=== PATIENT | female | born 2000 | race Caucasian/White ===

== ENCOUNTER 2024-12-21 17:12 | Emergency (ER) | payer BC, OTHER ==
[~2024-12-21] VITALS: Ht 162.6 cm; Wt 124.0 kg
[~2024-12-21 17:12] MED LIST: CYCLOBENZAPRINE5 MG PO; IBUPROFEN800 MG PO; MIDOL COMPLETE1 EACH PO; ORTHO TRI-CYCL1 EACH PO
--- OUTSIDE RECORDS SUMMARY | 2024-12-21 17:20 | XMS ---
PreManage Notification: EFREN KILGORE Security Hims Coder Events No recent Security Events currently on file CRITERIA MET - Group Notification CARE PROVIDERS -, Alexis- Dentist: Rehabilitation Program Coordinator [facility] PHONE: [phone] Claudia has no Care Guidelines for this patient. [place] VISIT COUNT (12 MO.) 1 FAVIO Rodrigues TOTAL 1 NOTE: Visits indicate total known visits. ED/UCC VISIT TRACKING (12 MO.) 12/21/2024 17:14 FAVIO Ruiz OR TYPE: Emergency COMPLAINT: - VAGINAL BLEEDING INPATIENT VISIT TRACKING (12 MO.) No inpatient visits to display in this time frame [email or web address]
[2024-12-21 18:29] LABS: BASOPHILS 0.4 % (0.1-1.2); EOSINOPHILS 1.9 % (0.7-5.8); HEMATOCRIT 39.2 % (34.1-44.9); HEMOGLOBIN 12.6 g/dL (11.2-15.7); LYMPHOCYTES 26.8 % (19.3-51.7); MCH 27.3 PG (25.6-32.2); MCHC 32.1 g/dL (32.2-35.5); MCV 84.8 fL (79.4-94.8); MONOCYTES 6.9 % (4.7-12.5); NEUTROPHILS 63.8 % (34.0-71.1); PLATELET COUNT 209 K/uL (182-369); RBC 4.62 M/uL (3.93-5.22)
[2024-12-21 18:47] LABS: ABO O; RH POSITIVE
[2024-12-21 18:49] LABS: ANION GAP 14.6 (7-21); BUN/CREATININE RATIO 10.66 (6.0-28.6); CALCIUM 9.7 mg/dL (8.5-10.1); CREATININE, SERUM 0.75 mg/dL (0.55-1.02); POTASSIUM 3.6 mmol/L (3.5-5.1)
[2024-12-21 19:56] LABS: ALBUMIN 3.9 g/dL (3.4-5.0); ALBUMIN/GLOBULIN RATIO 1.03 (1.1-2.4); BILIRUBIN, DIRECT 0.1 mg/dL (0.0-0.2); BILIRUBIN, INDIRECT 0.6 (0.1-0.7); BILIRUBIN, TOTAL 0.7 mg/dL (0.2-1.0); PROTEIN, TOTAL 7.7 g/dL (6.4-8.2)
[2024-12-21 20:39] LABS: BILIRUBIN, URINE NEGATIVE (negative); BLOOD/HGB, URINE LARGE (Negative); KETONE, URINE NEGATIVE (Negative); LEUK ESTERASE, URINE NEGATIVE (negative); NITRITE, URINE NEGATIVE (negative); PH, URINE 5.5 (5-7)
[2024-12-21 20:44] LABS: EPITHELIAL CELLS, URINE SQUAMOUS 1+ /lpf (0-1+); RED BLOOD CELLS, URINE >50 /hpf (0-5)
[2024-12-21 20:46] LABS: BACTERIA, URINE RARE /hpf (negative); CASTS, URINE NONE SEEN \\lpf; COLLECTION TYPE, URINE CLEAN CATCH; CRYSTALS, URINE NONE SEEN (0-1+); REFLEX CULTURE, URINE No (No); WHITE BLOOD CELLS, URINE 0-1 /HPF (0-5)
[2024-12-21 21:12] VITALS: BP 106/66
== END 2024-12-21 21:13 | disposition home or self-care (01) ==
LOC: ED 17:12
PROVIDERS: Emergency Medicine; Family Medicine
DX: O20.9 Hemorrhage in early pregnancy, unspecified (principal); Z3A.01 Less than 8 weeks gestation of pregnancy
CPT/HCPCS: 36415; 76801; 76817; 80048; 80076; 81001; 84702; 85025; 86900; 86901; 99284-25

== ENCOUNTER 2024-12-26 07:31 | Emergency (ER) | payer BC, OTHER ==
[~2024-12-26] VITALS: Ht 162.6 cm; Wt 124.0 kg
--- OUTSIDE RECORDS SUMMARY | 2024-12-26 07:38 | XMS ---
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 [place] VISIT COUNT (12 MO.) 2 [facility] TOTAL 2 NOTE: Visits indicate total known visits. ED/UCC VISIT TRACKING (12 MO.) 12/26/2024 07:32 F[facility]IO Ruiz OR TYPE: Emergency COMPLAINT: - VAGINAL BLEEDING 12/21/2024 17:14 FAVIO Ruiz OR TYPE: Emergency COMPLAINT: - VAGINAL BLEEDING DIAGNOSES: - Abnormal uterine and vaginal bleeding, unspecified - Hemorrhage in early , unspecified - Less than 8 weeks gestation of INPATIENT VISIT TRACKING (12 MO.) No inpatient visits to display in this time frame [email or web address]
[2024-12-26 08:53] LABS: BILIRUBIN, URINE NEGATIVE (negative); BLOOD/HGB, URINE LARGE (Negative); KETONE, URINE SMALL (Negative); LEUK ESTERASE, URINE NEGATIVE (negative); NITRITE, URINE NEGATIVE (negative)
[2024-12-26 08:58] LABS: EPITHELIAL CELLS, URINE SQUAMOUS 2+ /lpf (0-1+)
[2024-12-26 08:59] LABS: BACTERIA, URINE 1+ /hpf (negative); CASTS, URINE NONE SEEN \\lpf; COLLECTION TYPE, URINE CLEAN CATCH; CRYSTALS, URINE NONE SEEN (0-1+); REFLEX CULTURE, URINE No (No)
[2024-12-26 10:34] VITALS: BP 125/73
== END 2024-12-26 10:35 | disposition home or self-care (01) ==
LOC: ED 07:31
PROVIDERS: Emergency Medicine
DX: O20.0 Threatened abortion (principal); Z3A.00 Weeks of gestation of pregnancy not specified
CPT/HCPCS: 36415; 76817; 81001; 84702; 99284-25